=== PATIENT | female | born 2000 | race Caucasian/White ===

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

== ENCOUNTER → 2019-11-13 15:01 | Outpatient (CLI) | payer MEDICAID | END | disposition home or self-care (01) | LOC: D.US 14:30 → D.MAMMO 15:00 → D.US 15:00 | PROVIDERS: ATTEND Family Medicine | DX: N63.13 Unspecified lump in the right breast, lower outer quadrant (principal) ==

== ENCOUNTER → 2020-02-13 06:53 | Outpatient (CLI) | payer MEDICAID | END | disposition home or self-care (01) | LOC: D.US 06:53 | PROVIDERS: ATTEND Family Medicine | DX: N63.13 Unspecified lump in the right breast, lower outer quadrant (principal) ==